=== PATIENT | female | born 1940 | race Caucasian/White ===

== ENCOUNTER 2017-05-31 15:08 | Emergency (ER) | payer MEDICARE, OTHER ==
--- NOTE | 2017-05-31 15:35 | EDM.PDOC ---
ED HPI GENERAL MEDICAL PROBLEM - General Chief Complaint: Lower Extremity Injury/Pain Stated Complaint: RIGHT HIP PAIN Time Seen by Provider: 05/31/17 15:25 Source of Information: Reports: Patient History Limitations: Reports: No Limitations - History of Present Illness INITIAL COMMENTS - FREE TEXT/NARRATIVE: Patient presents with right hip pain after starting to fall and catching herself. She didn't fall but her right hip is hurting some; she can bear weight but it hurts. She had a hip replacement on this hip just 4 days ago and just returned home from [facility] yesterday. right hip Pain Score (Numeric/FACES): 7 - Related Data Allergies Allergy/AdvReac Type Severity Reaction Status Date / Time Penicillins Allergy Cannot Verified 03/28/14 06:05 Remember Home Meds: Home Meds Acetaminophen 500 mg PO BID 03/28/14 [History] Aspirin [Halfprin] 81 mg PO DAILY 03/28/14 [History] Calcium Carb & Citrate/Vit D3 [Citracal + D ER] 1 tab PO DAILY 03/28/14 [History ] Multivitamin [Multi Vitamin Daily] 1 each PO DAILY 03/28/14 [History] Pregabalin [Lyrica] 100 mg PO BID 03/28/14 [History] Valsartan/Hydrochlorothiazide [Valsartan-Hctz 160-12.5 mg Tab] 1 tab PO DAILY [History] Past Medical History - Past Surgical History Musculoskeletal Surgical History: Reports: Hip Replacement, Knee Replacement, Other (See Below) Social & Family History - Tobacco Use Smoking Status *Q: Never Smoker Second Hand Smoke Exposure: No - Alcohol Use Days Per Week of Alcohol Use: 1 - Recreational Drug Use Recreational Drug Use: No - Living Situation & Occupation Living situation: Reports: Occupation: Retired Review of Systems - Review of Systems Review Of Systems: See Below Constitutional: Denies: Chills, Fever Eyes: Denies: Vision Change Nose: Denies: Epistaxis Mouth/Throat: Denies: Lip Swelling, Muffled Voice Respiratory: Denies: Shortness of Breath, Cough Cardiovascular: Denies: Chest Pain, Syncope GI/Abdominal: Denies: Abdominal Pain, Vomiting Musculoskeletal: Reports: Leg Pain. Denies: Back Pain, Foot Pain Skin: Denies: Cyanosis, Jaundice, Mottled, Pallor, Diaphoresis Neurological: Denies: Confusion, Seizure, Syncope, Trouble Speaking ED EXAM, GENERAL - Physical Exam Exam: See Below Exam Limited By: No Limitations General Appearance: Alert, WD/WN, No Apparent Distress Eye Exam: Bilateral Eye: EOMI, Normal Inspection, PERRL Ears: Normal External Exam, Hearing Grossly Normal Nose: Normal Inspection, No Blood Throat/Mouth: Normal Inspection, Normal Lips, Normal Voice, No Airway Compromise Head: Atraumatic, Normocephalic Neck: Normal Inspection, Full Range of Motion Respiratory/Chest: No Respiratory Distress, Lungs Clear, Normal Breath Sounds, No Accessory Muscle Use Cardiovascular: Regular Rate, Rhythm, No Murmur GI/Abdominal: No Distention Extremities: Other (Right hip is flexed to 90 degrees and out straight without pain. Moderate hip rotation is performed passively with mild discomfort. No clunking or crepitus. Full ROM is not performed due to her recent arthroplasty. Dorsiflexion and plantar flexion is 5/5 and symmetric. Sensation intact. Other extremities unremarkable.) Neurological: Alert, Oriented, Normal Cognition, No Motor/Sensory Deficits Course - Vital Signs Last Recorded V/S: Last Vital Signs Temp 98 F 05/31/17 15:16 Pulse 89 05/31/17 15:16 Resp 18 05/31/17 15:16 BP 173/78 H 05/31/17 15:16 Pulse Ox 96 05/31/17 15:16 - Orders/Labs/Meds Orders: Active Orders 24 hr Category Date Time Status Hip Min 2V or 3V Rt [CR] Stat Exams 05/31/17 15:14 Ordered - Re-Assessments/Exams Free Text/Narrative Re-Assessment/Exam: 05/31/17 16:44 Xray shows right total hip arthroplasty without evidence of fracture, dislocation or hardware complication. Comparison post-op views from a couple days ago were obtained from [facility] in [place] which confirm no evidence of movement or change. Discussed findings, precautions and recommendations with patient and his . Patient discharged in stable condition. Departure - Departure Time of Disposition: 16:40 Disposition: Home, Self-Care 01 Condition: Good Clinical Impression: Right hip pain, Status post total hip replacement, right - Discharge Information Referrals: Dejah Macedo MD [Primary Care Provider] - Additional Instructions: 1. Continue with the 50% weight restriction on the right hip as directed by your surgeon. 2. Use your walker and use caution on ice and uneven surfaces. 3. Follow up with your surgeon as directed and if any problems call or see him sooner. 4. Return to ER as needed. - My Orders Last 24 Hours: My Active Orders 05/31/17 15:14 Hip Min 2V or 3V Rt [CR] Stat - Assessment/Plan Last 24 Hours: My Active Orders 05/31/17 15:14 Hip Min 2V or 3V Rt [CR] Stat
== END 2017-05-31 16:50 | disposition home or self-care (01) ==
LOC: KA.ED 15:08
DX: M25.551 Pain in right hip (principal); Z88.0 Allergy status to penicillin; Z79.899 Other long term (current) drug therapy; Z79.82 Long term (current) use of aspirin; Z96.641 Presence of right artificial hip joint
CPT/HCPCS: 99283

== ENCOUNTER 2023-01-13 10:19 | Observation (INO) | payer MEDICARE, OTHER ==
[2023-01-13 10:46] LABS: BASOPHILS ABSOLUTE AUTO 0.03 10^3/uL (0.00-0.10); BASOPHILS PERCENT AUTO 0.5 % (0.0-1.0); EOSINOPHILS ABSOLUTE AUTO 0.76 10^3/uL (0.10-0.30); EOSINOPHILS PERCENT AUTO 13.2 % (1.0-3.0); HEMATOCRIT 40.9 % (37.0-47.0); HEMOGLOBIN 13.6 g/dL (12.0-16.0); IMMATURE GRAN ABSOLUTE AUTO 0.01 10^3/uL (0.00-0.50); IMMATURE GRAN PERCENT AUTO 0.2 % (0.0-5.0); LYMPHOCYTES ABSOLUTE AUTO 2.04 10^3/uL (1.00-4.00); LYMPHOCYTES PERCENT AUTO 35.4 % (20.0-40.0); MEAN CORPUSCULAR HEMOGLOBIN 32.2 pg (27.0-31.0); MEAN CORPUSCULAR HGB CONC 33.3 g/dL (32.0-36.0); MEAN CORPUSCULAR VOLUME 96.7 fL (82.0-92.0); MEAN PLATELET VOLUME 9.1 fL (7.4-10.4); MONOCYTES ABSOLUTE AUTO 0.53 10^3/uL (0.10-0.80); MONOCYTES PERCENT AUTO 9.2 % (2.0-8.0); NEUTROPHILS PERCENT AUTO 41.5 % (50.0-70.0); PLATELET COUNT,PLT 252 10^3/uL (150-400); RED BLOOD CELL COUNT 4.23 10^6/uL (3.80-5.50); WHITE BLOOD CELL COUNT,WBC 5.77 10^3/uL (5.00-10.00)
[2023-01-13 11:01] LABS: ACETAMINOPHEN 15.4 ug/mL (10.0-30.0); ALBUMIN 3.94 g/dL (3.40-5.00); ANION GAP 15.1 mmol/L (5-15); BILIRUBIN TOTAL 0.5 mg/dL (0.2-1.0); CALCIUM 9.2 mg/dL (8.7-10.3); CARBON DIOXIDE,CO2 26.3 mmol/L (21.0-32.0); CREATININE 1.25 mg/dL (0.51-1.17); EST CRCL DRUG DOSING (CG) 29.96 mL/min; POTASSIUM,K 4.4 mmol/L (3.5-5.1); PROTEIN TOTAL,TP 7.8 g/dL (6.4-8.2)
[2023-01-13] MEDS ORDERED: Sodium Bicarbonate 75 MEQ in Sodium Chloride 0.45% 1,000 ML IV SCH ×2 (13:20→15:00)
[2023-01-13] MEDS ORDERED: hydrALAZINE 20 MG/ML SDV IVPUSH PRN (13:23)
[2023-01-13] MEDS: Ondansetron 4 MG/2 ML SDV IVPUSH PRN (15:04)
[2023-01-13] MEDS: hydrALAZINE 20 MG/ML SDV IVPUSH PRN (18:28)
[2023-01-13 18:50] LABS: ANION GAP 14.3 mmol/L (5-15); CARBON DIOXIDE,CO2 25.9 mmol/L (21.0-32.0); CREATININE 1.27 mg/dL (0.51-1.17); POTASSIUM,K 4.2 mmol/L (3.5-5.1)
[2023-01-13 18:51] LABS: ALBUMIN 3.71 g/dL (3.40-5.00); BILIRUBIN TOTAL 0.6 mg/dL (0.2-1.0); CALCIUM 9.9 mg/dL (8.7-10.3); EST CRCL DRUG DOSING (CG) 29.49 mL/min; PROTEIN TOTAL,TP 7.2 g/dL (6.4-8.2)
[2023-01-14] MEDS ORDERED: Sodium Chloride 0.9% 10 ML Syringe FLUSH PRN (01:49)
[2023-01-14] MEDS: hydrALAZINE 20 MG/ML SDV IVPUSH PRN (03:05)
[2023-01-14] MEDS ORDERED: LORazepam 2 MG/ML SDV IVPUSH ONE (04:19)
[2023-01-14] MEDS: Ondansetron 4 MG/2 ML SDV IVPUSH PRN (07:20)
[2023-01-14 07:28] LABS: ALBUMIN 3.76 g/dL (3.40-5.00); ANION GAP 13.2 mmol/L (5-15); BILIRUBIN TOTAL 0.4 mg/dL (0.2-1.0); CALCIUM 9.3 mg/dL (8.7-10.3); CARBON DIOXIDE,CO2 27.4 mmol/L (21.0-32.0); CREATININE 1.08 mg/dL (0.51-1.17); EST CRCL DRUG DOSING (CG) 34.68 mL/min; POTASSIUM,K 3.6 mmol/L (3.5-5.1); PROTEIN TOTAL,TP 7.2 g/dL (6.4-8.2)
== END 2023-01-14 13:40 | disposition home or self-care (01) ==
LOC: KA.ED 10:19 → KA.MS 12:01
PROVIDERS: ADMIT Internal Medicine; ATTEND Internal Medicine
DX: T50.911A Poisoning by multiple unspecified drugs, medicaments and biological substances, accidental (unintentional), initial encounter (principal); F03.B0 Unspecified dementia, moderate, without behavioral disturbance, psychotic disturbance, mood disturbance, and anxiety; I12.9 Hypertensive chronic kidney disease with stage 1 through stage 4 chronic kidney disease, or unspecified chronic kidney disease; N18.30 Chronic kidney disease, stage 3 unspecified; E78.00 Pure hypercholesterolemia, unspecified; Z98.890 Other specified postprocedural states; Z79.82 Long term (current) use of aspirin; Z79.899 Other long term (current) drug therapy; Z88.0 Allergy status to penicillin
CPT/HCPCS: 36415; 80053; 80143; 83735; 85025; 93005; 93010; 96365; 96366; 96375; 96376; 99283; 99285; G0378; J0360; J2060; J2405; J3490; J7030; Q3014

== ENCOUNTER 2024-02-23 13:25 | Inpatient (IN) | payer MEDICARE, OTHER ==
[2024-02-23] MEDS ORDERED: Sodium Chloride 0.9% 10 ML Syringe FLUSH PRN (13:44)
[2024-02-23 13:50] LABS: BASOPHILS ABSOLUTE AUTO 0.03 10^3/uL (0.00-0.10); BASOPHILS PERCENT AUTO 0.5 % (0.0-1.0); EOSINOPHILS ABSOLUTE AUTO 0.28 10^3/uL (0.10-0.30); HEMATOCRIT 38.5 % (37.0-47.0); HEMOGLOBIN 13.2 g/dL (12.0-16.0); LYMPHOCYTES ABSOLUTE AUTO 1.32 10^3/uL (1.00-4.00); LYMPHOCYTES PERCENT AUTO 23.7 % (20.0-40.0); MEAN CORPUSCULAR HEMOGLOBIN 32.8 pg (27.0-31.0); MEAN CORPUSCULAR HGB CONC 34.3 g/dL (32.0-36.0); MEAN CORPUSCULAR VOLUME 95.5 fL (82.0-92.0); MEAN PLATELET VOLUME 9.6 fL (7.4-10.4); MONOCYTES ABSOLUTE AUTO 0.66 10^3/uL (0.10-0.80); MONOCYTES PERCENT AUTO 11.8 % (2.0-8.0); NEUTROPHILS ABSOLUTE AUTO 3.29 10^3/uL (2.50-7.00); PLATELET COUNT,PLT 259 10^3/uL (150-400); RED BLOOD CELL COUNT 4.03 10^6/uL (3.80-5.50); RED CELL DISTRIBUTION WIDTH 12.2 % (11.5-14.5); WHITE BLOOD CELL COUNT,WBC 5.58 10^3/uL (5.00-10.00)
[2024-02-23 14:05] LABS: ALBUMIN 3.63 g/dL (3.40-5.00); ANION GAP 11.8 mmol/L (5-15); BILIRUBIN TOTAL 0.4 mg/dL (0.2-1.0); CALCIUM 8.9 mg/dL (8.7-10.3); CARBON DIOXIDE,CO2 27.9 mmol/L (21.0-32.0); CREATININE 1.27 mg/dL (0.51-1.17); EST CRCL DRUG DOSING (CG) 28.98 mL/min; POTASSIUM,K 3.7 mmol/L (3.5-5.1); PROTEIN TOTAL,TP 7.2 g/dL (6.4-8.2)
[2024-02-23 14:15] LABS: PROTHROMBIN TIME 10.7 SEC (9.3-12.2); PTT,PARTIAL THROMBOPLSTIN TIME 24.2 SEC (23.3-34.9)
[2024-02-23] MEDS: Aspirin 81 MG Tab.Chew PO ONE (14:28)
[2024-02-23] MEDS: Heparin Sodium 5,000 Units/ML Vial IVPUSH ONE (14:58)
[2024-02-23] MEDS: Heparin Sodium/D5W 250 ML IV SCH (14:59)
[2024-02-23] MEDS ORDERED: Polyethylene Glycol 3350 Powder 17 GM Packet PO PRN (16:25)
[2024-02-23] MEDS ORDERED: Acetaminophen 325 MG Tab PO PRN (16:25)
[2024-02-23] MEDS ORDERED: Ondansetron 4 MG Tab.DIS PO PRN (16:25)
[2024-02-23] MEDS ORDERED: Docusate Sodium 100 MG Cap PO PRN (16:25)
[2024-02-23] MEDS ORDERED: Morphine 2 MG/ML SYRINGE IVPUSH PRN (16:25)
[2024-02-23] MEDS ORDERED: Nitroglycerin 0.4 MG Tab.SL SL PRN (16:34)
[2024-02-23 17:13] LABS: HEMOGLOBIN A1C 5.9 % (4.3-5.7)
[2024-02-23 17:15] LABS: TSH ULTRASENSITIVE 4.43 uIU/mL (0.340-4.820)
[2024-02-24 07:28] LABS: BASOPHILS ABSOLUTE AUTO 0.03 10^3/uL (0.00-0.10); BASOPHILS PERCENT AUTO 0.6 % (0.0-1.0); EOSINOPHILS PERCENT AUTO 5.6 % (1.0-3.0); HEMATOCRIT 38.4 % (37.0-47.0); HEMOGLOBIN 12.7 g/dL (12.0-16.0); LYMPHOCYTES ABSOLUTE AUTO 1.71 10^3/uL (1.00-4.00); LYMPHOCYTES PERCENT AUTO 31.8 % (20.0-40.0); MEAN CORPUSCULAR HEMOGLOBIN 31.8 pg (27.0-31.0); MEAN CORPUSCULAR HGB CONC 33.1 g/dL (32.0-36.0); MEAN PLATELET VOLUME 9.8 fL (7.4-10.4); MONOCYTES ABSOLUTE AUTO 0.54 10^3/uL (0.10-0.80); PLATELET COUNT,PLT 224 10^3/uL (150-400); RED CELL DISTRIBUTION WIDTH 12.5 % (11.5-14.5); WHITE BLOOD CELL COUNT,WBC 5.38 10^3/uL (5.00-10.00)
[2024-02-24 07:44] LABS: ANION GAP 12.5 mmol/L (5-15); CALCIUM 8.5 mg/dL (8.7-10.3); CARBON DIOXIDE,CO2 26.3 mmol/L (21.0-32.0); CREATININE 0.98 mg/dL (0.51-1.17); EST CRCL DRUG DOSING (CG) 37.56 mL/min; MAGNESIUM 1.8 mg/dL (1.8-2.4); POTASSIUM,K 3.8 mmol/L (3.5-5.1)
[2024-02-24] MEDS: Aspirin 81 MG Tab.EC PO SCH (08:02)
[2024-02-24] MEDS: Simethicone 80 MG Tab.Chew PO SCH (08:02)
[2024-02-24] MEDS: atorvaSTATin 10 MG Tab PO SCH (08:02)
[2024-02-24] MEDS: Calcium Citrate/Vitamin D3 315 MG-250 Unit Tab PO SCH (08:02)
[2024-02-24] MEDS: Metoprolol Tartrate 25 MG Tab PO SCH (08:02)
[2024-02-24] MEDS: Clopidogrel 75 MG Tab PO SCH (08:02)
[2024-02-24] MEDS: LORazepam 2 MG/ML SDV IVPUSH ONE (14:45)
[2024-02-24] MEDS: Sodium Chloride 0.9% 10 ML Syringe FLUSH PRN (22:30)
[2024-02-25] MEDS: Docusate Sodium 100 MG Cap PO SCH (08:27)
== END 2024-02-25 13:47 | DRG 64 ==
LOC: KA.ED 13:25 → KA.MS 15:15
PROVIDERS: ADMIT Family Medicine; ATTEND Family Medicine
DX: I63.89 Other cerebral infarction (principal); I21.4 Non-ST elevation (NSTEMI) myocardial infarction; N18.9 Chronic kidney disease, unspecified; E78.00 Pure hypercholesterolemia, unspecified; K21.9 Gastro-esophageal reflux disease without esophagitis; I12.9 Hypertensive chronic kidney disease with stage 1 through stage 4 chronic kidney disease, or unspecified chronic kidney disease; Z96.659 Presence of unspecified artificial knee joint; Z96.649 Presence of unspecified artificial hip joint; N18.30 Chronic kidney disease, stage 3 unspecified; F03.B0 Unspecified dementia, moderate, without behavioral disturbance, psychotic disturbance, mood disturbance, and anxiety; H54.7 Unspecified visual loss; R29.898 Other symptoms and signs involving the musculoskeletal system; R29.701 NIHSS score 1; Z88.0 Allergy status to penicillin; Z79.82 Long term (current) use of aspirin; Z79.899 Other long term (current) drug therapy
CPT/HCPCS: 70450; 71045; 80053; 80061; 82947; 83036; 84443; 84484; 85025; 85610; 85730; 93005; 93010; 96365; 99284; 99285; A9270; J1644 ×2; 36415; 70551; 80048; 83735; 83880; 99223-GT; 99233-GT; 99239-GT; J2060; J3490; Q3014